=== PATIENT | female | born 1950 | race Caucasian/White ===

== ENCOUNTER → 2018-04-03 | Outpatient (CLI) | payer MEDICARE, OTHER ==
--- NOTE | 2018-04-05 11:38 | MM ---
Reason for exam: screening (asymptomatic). Last mammogram was performed 11 years and 1 month ago. History: Patient is postmenopausal and is nulliparous. Benign excisional biopsy of the right breast, 1970. Took estrogen for 4 years. Physical Findings: A clinical breast exam by your physician is recommended on an annual basis and results should be correlated with mammographic findings. MG 3D Screening Mammo W/Cad Bilateral CC and MLO view(s) were taken. Technologist: RT Danelle (R)(M) Prior study comparison: March 03, 2007, bilateral screening mammogram w/CAD. February 21, 2006, bilateral screening mammogram w/CAD. There are scattered fibroglandular densities. Finding: There are intermediate concern, suspicious coarse heterogeneous, linear, grouped/clustered calcifications in the 6 o'clock middle position of the right breast. ASSESSMENT: Incomplete: need additional imaging evaluation, BI-RAD 0 RECOMMENDATION: Special view mammogram of the right breast. [facility] will attempt to contact patient to return for supplemental views.
== END | disposition home or self-care (01) ==
LOC: RADMAMWWP 14:39
PROVIDERS: ATTEND General Practice
DX: Z12.31 Encounter for screening mammogram for malignant neoplasm of breast (principal); I10 Essential (primary) hypertension; E11.9 Type 2 diabetes mellitus without complications; E78.5 Hyperlipidemia, unspecified; R26.81 Unsteadiness on feet; Z13.89 Encounter for screening for other disorder; Z12.11 Encounter for screening for malignant neoplasm of colon; Z23 Encounter for immunization
CPT/HCPCS: 77063; 77067

== ENCOUNTER → 2018-04-17 | Outpatient (CLI) | payer MEDICARE, OTHER ==
--- NOTE | 2018-04-18 11:01 | MM ---
Reason for exam: additional evaluation requested from abnormal screening. Last mammogram was performed less than 1 month ago. History: Patient is postmenopausal and is nulliparous. Benign excisional biopsy of the right breast, 1970. Took estrogen for 4 years. MG 3D Work Up W/Cad RT CC and MLO view(s) were taken of the right breast. Prior study comparison: April 03, 2018, bilateral MG 3d screening mammo w/cad. March 03, 2007, bilateral screening mammogram w/CAD. ASSESSMENT: Probably benign, BI-RAD 3 RECOMMENDATION: Follow-up diagnostic mammogram of the right breast in 6 months.
--- NOTE | 2018-04-18 11:07 | USB ---
Reason for exam: additional evaluation requested from prior study. History: Patient is postmenopausal and is nulliparous. Family history of breast cancer in maternal cousin at age 50. Benign excisional biopsy of the right breast, 1970. Took estrogen for 4 years. US Breast Workup Limited RT Right limited breast ultrasound including focal area of concern, retroareolar and axilla demonstrates no solid or systic lesion seen. These results were verbally communicated with the patient and result sheet given to the patient on 04/17/18. ASSESSMENT: Probably benign, BI-RAD 3 RECOMMENDATION: Follow-up diagnostic mammogram of the right breast in 6 months. Manage on a clinical basis.
== END | disposition home or self-care (01) ==
LOC: RADMAMWWP 15:38
PROVIDERS: ATTEND General Practice
DX: R92.8 Other abnormal and inconclusive findings on diagnostic imaging of breast (principal)
CPT/HCPCS: 77065; 76642; G0279; 77061

== ENCOUNTER 2018-06-19 10:34 | Emergency (ER) | payer MEDICARE, OTHER ==
[2018-06-19] MEDS ORDERED: SODIUM CHLORIDE 0.9% 500 ML 500 ML IV ONE (11:40)
[2018-06-19] MEDS ORDERED: KETOROLAC 60 MG/2 ML VIAL IVP STA (11:40)
[2018-06-19] MEDS ORDERED: DIAZEPAM 5 MG/ML 2 ML INJ IVP STA (11:40)
--- NOTE | 2018-06-19 11:48 | ED ---
General Adult HPI - General Chief complaint: Neck Pain/Injury Stated complaint: Neck Pain Time Seen by Provider: 06/19/18 10:45 Source: EMS, RN notes reviewed Mode of arrival: EMS Limitations: no limitations - History of Present Illness Initial comments: This is a 68-year-old female who presents emergency Department with a past medical history significant for stroke and chronic tremors. Patient states she woke up after sleeping on the sofa but all night with some neck pain bilaterally. Patient states she also just didn't feel right but she is unable to give any further description. Sister who lives with her states that the patient seemed to be a little more slow in her responses than normal so she was worried the patient had a stroke again because she's not formally with the signs and symptoms of stroke. Patient states she she had no weakness of any extremity no numbness of any extremity she states she has a very mild headache she denies any blurred vision she denies any worsening in her speech. But she does state that she just doesn't feel right. Patient denies any chest pain palpitations difficulty breathing or shortness of breath. Patient denies any abdominal pain patient denies any nausea vomiting or diarrhea. Patient denies any recent fever chills. Patient states her neck is stiff especially the left side but both sides are stiff when she tries to move it. - Related Data Previous Rx's Medication Instructions Recorded Ibuprofen [Motrin] 600 mg PO Q6HR PRN #20 tab 06/19/18 Orphenadrine [Norflex] 100 mg PO Q12H #20 tablet.er 06/19/18 Allergies Allergy/AdvReac Type Severity Reaction Status Date / Time No Known Allergies Allergy Verified 06/19/18 10:45 Review of Systems ROS Statement: Those systems with pertinent positive or pertinent negative responses have been documented in the HPI. ROS Other: All systems not noted in ROS Statement are negative. Past Medical History Past Medical History: CVA/TIA, Diabetes Mellitus, Hyperlipidemia, Hypertension History of Any Multi-Drug Resistant Organisms: None Reported Past Surgical History: Appendectomy Additional Past Surgical History / Comment(s): L breast Past Psychological History: No Psychological Hx Reported Smoking Status: Never smoker Past Alcohol Use History: None Reported Past Drug Use History: None Reported General Exam - General Exam Comments Initial Comments: GENERAL: Patient is well-developed and well-nourished. Patient is nontoxic and well- hydrated and is in mild distress. ENT: Neck is soft and supple. No significant lymphadenopathy is noted. Oropharynx is clear. Moist mucous membranes. Moving the neck to the right left or flexes it does cause her some pain in the trapezius muscles bilaterally EYES: The sclera were anicteric and conjunctiva were pink and moist. Extraocular movements were intact and pupils were equal round and reactive to light. Eyelids were unremarkable. PULMONARY: Unlabored respirations. Good breath sounds bilaterally. No audible rales rhonchi or wheezing was noted. CARDIOVASCULAR: There is a regular rate and rhythm without any murmurs gallops or rubs. ABDOMEN: Soft and nontender with normal bowel sounds. SKIN: Skin is clear with no lesions or rashes and otherwise unremarkable. NEUROLOGIC: Patient is alert and oriented x3. Cranial nerves II through XII are grossly intact. Motor and sensory are also intact. Patient's speech is slow and quiet but the sister and the patient agree that this is normal for her. MUSCULOSKELETAL: Normal extremities with adequate strength and full range of motion. No lower extremity swelling or edema. No calf tenderness. LYMPHATICS: No significant lymphadenopathy is noted PSYCHIATRIC: Normal psychiatric evaluation. Normal interpersonal interactions appears functionally intact in deals appropriately with others. No signs of depression. No signs of anxiety. Limitations: no limitations Course Vital Signs 06/19/18 06/19/18 06/19/18 10:45 11:00 12:50 Temperature 98.4 F Pulse Rate 73 79 Respiratory 16 18 Rate Blood Pressure 150/90 146/88 O2 Sat by Pulse 95 97 Oximetry Medical Decision Making - Medical Decision Making EKG shows normal sinus rhythm at 60 bpm AK interval is on a 52 QRS is 86 QT interval 420 QTC is 446. Patient's EKG shows no ST segment elevation or depression or T wave abnormalities are noted. Patient received Valium and Toradol. Patient was reevaluated by myself in her range of motion of her neck was considerably improved. Family member noted a great improvement as well. Patient stated overall she felt completely better and back to her baseline except for a little residual Stiffness. Patient no longer felt any confusion - Lab Data Result diagrams: 06/19/18 12:07 06/19/18 12:07 Lab Results 06/19/18 06/19/18 06/19/18 Range/Units 12:07 12:07 12:07 WBC 5.1 (3.8-10.6) k/uL RBC 3.89 (3.80-5.40) m/uL Hgb 12.2 (11.4-16.0) gm/dL Hct 36.2 (34.0-46.0) % MCV 93.3 (80.0-100.0) fL MCH 31.5 (25.0-35.0) pg MCHC 33.8 (31.0-37.0) g/dL RDW 13.5 (11.5-15.5) % Plt Count 183 (150-450) k/uL Neutrophils % 63 % Lymphocytes % 26 % Monocytes % 5 % Eosinophils % 4 % Basophils % 1 % Neutrophils # 3.2 (1.3-7.7) k/uL Lymphocytes # 1.3 (1.0-4.8) k/uL Monocytes # 0.3 (0-1.0) k/uL Eosinophils # 0.2 (0-0.7) k/uL Basophils # 0.0 (0-0.2) k/uL PT (9.0-12.0) sec INR (<1.2) APTT (22.0-30.0) sec Sodium 140 (137-145) mmol/L Potassium 4.8 (3.5-5.1) mmol/L Chloride 106 (98-107) mmol/L Carbon Dioxide 24 (22-30) mmol/L Anion Gap 10 mmol/L BUN 21 H (7-17) mg/dL Creatinine 0.48 L (0.52-1.04) mg/dL Est GFR (CKD-EPI)AfAm >90 (>60 ml/min/1.73 sqM) Est GFR (CKD-EPI)NonAf >90 (>60 ml/min/1.73 sqM) Glucose 138 H (74-99) mg/dL Calcium 9.4 (8.4-10.2) mg/dL Total Bilirubin 0.9 (0.2-1.3) mg/dL AST 63 H (14-36) U/L ALT 74 H (9-52) U/L Alkaline Phosphatase 50 (38-126) U/L Total Creatine Kinase 29 L (30-135) U/L CK-MB (CK-2) <0.2 (0.0-2.4) ng/mL CK-MB (CK-2) Rel Index Troponin I <0.012 (0.000-0.034) ng/mL Total Protein 7.5 (6.3-8.2) g/dL Albumin 4.2 (3.5-5.0) g/dL Urine Color Urine Appearance (Clear) Urine pH (5.0-8.0) Ur Specific [place] (1.001-1.035) Urine Protein (Negative) Urine Glucose (UA) (Negative) Urine Ketones (Negative) Urine Blood (Negative) Urine Nitrite (Negative) Urine Bilirubin (Negative) Urine Urobilinogen (<2.0) mg/dL Ur Leukocyte Esterase (Negative) Urine Opiates Screen (NotDetected) Ur Oxycodone Screen (NotDetected) Urine Methadone Screen (NotDetected) Ur Propoxyphene Screen (NotDetected) Ur Barbiturates Screen (NotDetected) U Tricyclic Antidepress (NotDetected) Ur Phencyclidine Scrn (NotDetected) Ur Amphetamines Screen (NotDetected) U Methamphetamines Scrn (NotDetected) U Benzodiazepines Scrn (NotDetected) Urine Cocaine Screen (NotDetected) U Marijuana (THC) Screen (NotDetected) 06/19/18 06/19/18 Range/Units 12:07 12:55 WBC (3.8-10.6) k/uL RBC (3.80-5.40) m/uL Hgb (11.4-16.0) gm/dL Hct (34.0-46.0) % MCV (80.0-100.0) fL MCH (25.0-35.0) pg MCHC (31.0-37.0) g/dL RDW (11.5-15.5) % Plt Count (150-450) k/uL Neutrophils % % Lymphocytes % % Monocytes % % Eosinophils % % Basophils % % Neutrophils # (1.3-7.7) k/uL Lymphocytes # (1.0-4.8) k/uL Monocytes # (0-1.0) k/uL Eosinophils # (0-0.7) k/uL Basophils # (0-0.2) k/uL PT 10.1 (9.0-12.0) sec INR 1.0 (<1.2) APTT 22.7 (22.0-30.0) sec Sodium (137-145) mmol/L Potassium (3.5-5.1) mmol/L Chloride (98-107) mmol/L Carbon Dioxide (22-30) mmol/L Anion Gap mmol/L BUN (7-17) mg/dL Creatinine (0.52-1.04) mg/dL Est GFR (CKD-EPI)AfAm (>60 ml/min/1.73 sqM) Est GFR (CKD-EPI)NonAf (>60 ml/min/1.73 sqM) Glucose (74-99) mg/dL Calcium (8.4-10.2) mg/dL Total Bilirubin (0.2-1.3) mg/dL AST (14-36) U/L ALT (9-52) U/L Alkaline Phosphatase (38-126) U/L Total Creatine Kinase (30-135) U/L CK-MB (CK-2) (0.0-2.4) ng/mL CK-MB (CK-2) Rel Index Troponin I (0.000-0.034) ng/mL Total Protein (6.3-8.2) g/dL Albumin (3.5-5.0) g/dL Urine Color Yellow Urine Appearance Clear (Clear) Urine pH 5.5 (5.0-8.0) Ur Specific [place] 1.021 (1.001-1.035) Urine Protein Trace H (Negative) Urine Glucose (UA) Negative (Negative) Urine Ketones Negative (Negative) Urine Blood Negative (Negative) Urine Nitrite Negative (Negative) Urine Bilirubin Negative (Negative) Urine Urobilinogen <2.0 (<2.0) mg/dL Ur Leukocyte Esterase Negative (Negative) Urine Opiates Screen Not Detected (NotDetected) Ur Oxycodone Screen Not Detected (NotDetected) Urine Methadone Screen Not Detected (NotDetected) Ur Propoxyphene Screen Not Detected (NotDetected) Ur Barbiturates Screen Not Detected (NotDetected) U Tricyclic Antidepress Not Detected (NotDetected) Ur Phencyclidine Scrn Not Detected (NotDetected) Ur Amphetamines Screen Not Detected (NotDetected) U Methamphetamines Scrn Not Detected (NotDetected) U Benzodiazepines Scrn Not Detected (NotDetected) Urine Cocaine Screen Not Detected (NotDetected) U Marijuana (THC) Screen Not Detected (NotDetected) Disposition Clinical Impression: Strain of neck muscle Instructions: Cervical Strain (ED) Prescriptions: Ibuprofen [Motrin] 600 mg PO Q6HR PRN #20 tab PRN Reason: For pain Orphenadrine [Norflex] 100 mg PO Q12H #20 tablet.er Is patient prescribed a controlled substance at d/c from ED?: No Referrals: Ryder Guadalupe MD [Primary Care Provider] - 1-2 days Time of Disposition: 13:34
[2018-06-19 12:30] LABS: Basophils % (A) 1 %; Eosinophils # (A) 0.2 k/uL (0-0.7); Eosinophils % (A) 4 %; HCT 36.2 % (34.0-46.0); HGB 12.2 gm/dL (11.4-16.0); Lymphocytes # (A) 1.3 k/uL (1.0-4.8); Lymphocytes % (A) 26 %; MCH 31.5 pg (25.0-35.0); MCHC 33.8 g/dL (31.0-37.0); MCV 93.3 fL (80.0-100.0); Mean Platelet Volume 9.4; Monocytes # (A) 0.3 k/uL (0-1.0); Monocytes % (A) 5 %; Neutrophils # (A) 3.2 k/uL (1.3-7.7); Neutrophils % (A) 63 %; Platelet Count 183 k/uL (150-450); RBC 3.89 m/uL (3.80-5.40); RDW 13.5 % (11.5-15.5); WBC 5.1 k/uL (3.8-10.6)
--- NOTE | 2018-06-19 12:41 | XR ---
EXAMINATION TYPE: XR chest 2V DATE OF EXAM: 06/19/2018 COMPARISON: NONE HISTORY: Neck and chest pain and sore throat. TECHNIQUE: Frontal and lateral views of the chest are obtained. FINDINGS: There is no focal air space opacity, pleural effusion, or pneumothorax seen. The cardiac silhouette size is within normal limits. The osseous structures are intact. IMPRESSION: No acute cardiopulmonary process.
[2018-06-19 12:44] LABS: ALT 74 U/L (9-52); AST 63 U/L (14-36); Albumin 4.2 g/dL (3.5-5.0); Alkaline Phosphatase 50 U/L (38-126); Anion Gap 10 mmol/L; Blood Urea Nitrogen 21 mg/dL (7-17); Calcium 9.4 mg/dL (8.4-10.2); Carbon Dioxide 24 mmol/L (22-30); Chloride 106 mmol/L (98-107); Glucose 138 mg/dL (74-99); Sodium 140 mmol/L (137-145); Total Bilirubin 0.9 mg/dL (0.2-1.3); Total Protein 7.5 g/dL (6.3-8.2)
[2018-06-19 12:50] VITALS: RESP 18
[2018-06-19 12:52] LABS: Potassium 4.8 mmol/L (3.5-5.1)
[2018-06-19 12:56] LABS: Creatine Kinase 29 U/L (30-135)
[2018-06-19 13:07] LABS: Appearance,Urine Clear (Clear); Bilirubin,Urine Negative (Negative); Blood,Urine Negative (Negative); Color,Urine Yellow; Glucose,Urine (UA) Negative (Negative); Ketones,Urine Negative (Negative); Leukocyte Esterase,Urine Negative (Negative); Nitrite,Urine Negative (Negative); PH, Urine 5.5 (5.0-8.0); Protein,Urine Trace (Negative); Specific Gravity,Urine 1.021 (1.001-1.035); Urobilinogen,Urine <2.0 mg/dL (<2.0)
[2018-06-19 13:09] LABS: Creatine Kinase MB <0.2 ng/mL (0.0-2.4); Troponin I <0.012 ng/mL (0.000-0.034)
[2018-06-19 13:10] LABS: Partial Thromboplastin Time 22.7 sec (22.0-30.0); Prothrombin Time 10.1 sec (9.0-12.0)
[2018-06-19 13:20] LABS: Amphetamine Screen,Urine Not Detected (NotDetected); Barbiturate Screen,Urine Not Detected (NotDetected); Benzodiazepines Screen,Urine Not Detected (NotDetected); Cocaine Screen,Urine Not Detected (NotDetected); Methadone Screen, Urine Not Detected (NotDetected); Opiate Screen,Urine Not Detected (NotDetected); Oxycodone Screen, Urine Not Detected (NotDetected); Phencyclidine Screen,Urine Not Detected (NotDetected); Tricyclic Antidepressant,Urine Not Detected (NotDetected); Urn Cannabinoid Scrn Not Detected (NotDetected)
[2018-06-19 13:57] VITALS: BP 145/96; PULSE 75; TEMP 97.9
== END 2018-06-19 13:56 ==
LOC: EC 10:34
DX: Z86.73 Personal history of transient ischemic attack (TIA), and cerebral infarction without residual deficits (principal); S16.1XXA Strain of muscle, fascia and tendon at neck level, initial encounter; R51 Headache; X58.XXXA Exposure to other specified factors, initial encounter
CPT/HCPCS: 36415; 93005; 80053; 82550; 82553; 84484; 85025; 85610; 85730; 81003; 80306; 71046; 99284; 96374; 96375; J3360; J1885

== ENCOUNTER 2018-07-18 09:27 | Emergency (ER) | payer MEDICARE, OTHER ==
[2018-07-18] MEDS ORDERED: DIAZEPAM 5 MG TAB PO STA (10:31)
[2018-07-18] MEDS ORDERED: KETOROLAC 30 MG/ML 1 ML VIAL IM STA (10:31)
[2018-07-18 11:45] LABS: Basophils % (A) 1 %; Eosinophils # (A) 0.2 k/uL (0-0.7); Eosinophils % (A) 5 %; HGB 12.5 gm/dL (11.4-16.0); Lymphocytes # (A) 1.3 k/uL (1.0-4.8); Lymphocytes % (A) 30 %; MCH 30.5 pg (25.0-35.0); MCHC 32.8 g/dL (31.0-37.0); MCV 93.2 fL (80.0-100.0); Mean Platelet Volume 8.7; Monocytes # (A) 0.2 k/uL (0-1.0); Monocytes % (A) 5 %; Neutrophils # (A) 2.5 k/uL (1.3-7.7); Neutrophils % (A) 57 %; Platelet Count 169 k/uL (150-450); RBC 4.08 m/uL (3.80-5.40); RDW 13.2 % (11.5-15.5); WBC 4.3 k/uL (3.8-10.6)
[2018-07-18 11:51] LABS: ALT 52 U/L (9-52); AST 47 U/L (14-36); Albumin 4.1 g/dL (3.5-5.0); Alkaline Phosphatase 59 U/L (38-126); Anion Gap 10 mmol/L; Blood Urea Nitrogen 15 mg/dL (7-17); Calcium 9.4 mg/dL (8.4-10.2); Carbon Dioxide 24 mmol/L (22-30); Chloride 108 mmol/L (98-107); Glucose 95 mg/dL (74-99); Potassium 4.2 mmol/L (3.5-5.1); Sodium 142 mmol/L (137-145); Total Bilirubin 0.9 mg/dL (0.2-1.3); Total Protein 7.2 g/dL (6.3-8.2)
[2018-07-18 12:02] LABS: Creatine Kinase 37 U/L (30-135)
[2018-07-18 12:15] LABS: Creatine Kinase MB 0.3 ng/mL (0.0-2.4); Troponin I <0.012 ng/mL (0.000-0.034)
[2018-07-18] MEDS ORDERED: KETOROLAC 30 MG/ML 1 ML VIAL IVP STA (12:18)
--- NOTE | 2018-07-18 13:49 | ED ---
Back Pain HPI - General Chief Complaint: Back Pain/Injury Stated Complaint: Back pain Time Seen by Provider: 07/18/18 10:02 Source: patient Limitations: no limitations - History of Present Illness Initial Comments: 68-year-old female past medical history of previous stroke with right-sided residual deficits and chronic tremors presenting for neck tension. Patient states that she woke this morning with bilateral neck pain. She states that she felt off at this but had difficulty describing symptoms. Pt denies headache , vision loss, dizziness, upper or lower extremity paresthesias, muscle weakness , ataxia, speech changes, dysarthria. She states she lives with her sister, who was concerned that patient was experiencing stroke, however she states her sister does not know the signs and symptoms of s stroke. EMS was called-pt ambulatory. Patient states it felt more like a muscle spasm she experienced about a month ago she states that she was given 2 medications which took the pain away immediately at the hospital. Patient denies any recent fever, chills, shortness of breath, chest pain, back pain, abdominal pain, nausea or vomiting, numbness or tingling, dysuria or hematuria, constipation or diarrhea, headaches or visual changes, or any other complaints. Upon arrival patient appears well, alert and oriented 4. Ambulate without difficulty no signs of ataxia. - Related Data Home Medications Medication Instructions Recorded Confirmed Aspirin [Bracken Aspirin EC] 81 mg PO DAILY 07/18/18 07/18/18 Atorvastatin [Lipitor] 20 mg PO HS 07/18/18 07/18/18 Ergocalciferol [Vitamin D2 50,000 units PO Q7D 07/18/18 07/18/18 (DRISDOL)] Escitalopram [Lexapro] 10 mg PO DAILY 07/18/18 07/18/18 Levothyroxine Sodium 25 mcg PO DAILY 07/18/18 07/18/18 Lisinopril [Prinivil] 10 mg PO DAILY 07/18/18 07/18/18 amLODIPine [Norvasc] 10 mg PO DAILY 07/18/18 07/18/18 metFORMIN HCL 1,000 mg PO BID 07/18/18 07/18/18 Allergies Allergy/AdvReac Type Severity Reaction Status Date / Time No Known Allergies Allergy Verified 07/18/18 10:31 Review of Systems ROS Statement: Those systems with pertinent positive or pertinent negative responses have been documented in the HPI. ROS Other: All systems not noted in ROS Statement are negative. Constitutional: Denies: fever, chills, weight change, night sweats ENT: Denies: ear pain, throat pain, dental pain Respiratory: Denies: cough, dyspnea, wheezes, hemoptysis, stridor Cardiovascular: Denies: chest pain, palpitations, dyspnea on exertion Endocrine: Denies: fatigue Gastrointestinal: Denies: abdominal pain, nausea, vomiting, diarrhea, constipation Genitourinary: Denies: urgency, dysuria, frequency Musculoskeletal: Reports: as per HPI (neck tension). Denies: back pain, arthralgia Skin: Denies: rash, lesions Neurological: Denies: headache, weakness, numbness, paresthesias, confusion, abnormal gait Past Medical History Past Medical History: CVA/TIA, Diabetes Mellitus, Hyperlipidemia, Hypertension History of Any Multi-Drug Resistant Organisms: None Reported Past Surgical History: Appendectomy Additional Past Surgical History / Comment(s): L breast Past Psychological History: No Psychological Hx Reported Smoking Status: Never smoker Past Alcohol Use History: None Reported Past Drug Use History: None Reported General Exam - General Exam Comments Initial Comments: General: The patient is awake and alert, in no distress, and does not appear acutely ill. Eye: +3 mm pupils are equal, round and reactive to light, extra-ocular movements are intact. No photophobia. No nystagmus. There is normal conjunctiva bilaterally. No signs of icterus. Ears, nose, mouth and throat: There are moist mucous membranes and no oral lesions. Neck: The neck is supple, there is no tenderness or JVD. Cardiovascular: There is a regular rate and rhythm. No murmur, rub or gallop is appreciated. Respiratory: Lungs are clear to auscultation, respirations are non-labored, breath sounds are equal. No wheezes, stridor, rales, or rhonchi. Gastrointestinal: Soft, non-distended, non-tender abdomen without masses or organomegaly noted. There is no rebound or guarding present. No CVA tenderness. Bowel sounds are unremarkable. Musculoskeletal: Pt is able to flex, extend and laterally flex and rotate at the cervical spine no midline tenderness to palpation-. Normal ROM, no tenderness. Strength 4/5 right UE & LE. 5/5 strength of the left UE & LE. Sensation intact of the UE and LE equally b/l. Radial pulses equal bilaterally 2 +. Neurological: A&O x 3. CN II-XII intact, There are no obvious motor or sensory deficits. Coordination appears grossly intact. Speech is normal. No pronator drift, no signs of ataxia. Negative Kernig and Babinski sign. No nuchal rigidity. Skin: Skin is warm and dry and no rashes or lesions are noted. Psychiatric: Cooperative, appropriate mood & affect, normal judgment. Limitations: no limitations Course Vital Signs 07/18/18 07/18/18 07/18/18 09:32 12:21 15:34 Temperature 97.7 F 97.1 F L Pulse Rate 64 73 80 Respiratory 18 28 H 18 Rate Blood Pressure 147/84 152/78 147/88 O2 Sat by Pulse 97 97 95 Oximetry - Reevaluation(s) Reevaluation #1: Upon reevaluation following administration of Toradol and Valium patient states that her symptoms are however sent relieved, she is feeling much better. Patient states she is able to range more easily at the neck. She states she is ready for discharge. 07/18/18 Medical Decision Making - Medical Decision Making EKG shows no changes in comparison from June 2018. Patient received significant relief from Valium and Toradol, stating symptoms are 100% relieved. No focal neurological deficits on exam. Patient had much with her overall movement of the neck upon repeat physical examination. Patient sister in room stated that patient neck movement appeared greatly improved. At this time I feel pt symptoms due to neck muscle spasm, patient agrees . I feel patient is stable for discharge wtih primary f/u. Laboratory findings as noted above. VS within acceptable limits. Pt states she has current rx for mm relaxant and ibuprofen at home, pt was instructed to take muscle relaxant before bedtime as well as ibuprofen 800 every 8 hours as needed for pain. After discussing the case with Dr. Alvarado in detail he agrees with impression and plan. Patient was discharged in stable condition. Sister and patient both agreeable with discharge, denied further concerns or questions at this time. Return parameters discussed at length. - Lab Data Result diagrams: 07/18/18 11:17 07/18/18 11:17 Lab Results 07/18/18 07/18/18 07/18/18 Range/Units 11:17 11: 11:17 WBC 4.3 (3.8-10.6) k/uL RBC 4.08 (3.80-5.40) m/uL Hgb 12.5 (11.4-16.0) gm/dL Hct 38.0 (34.0-46.0) % MCV 93.2 (80.0-100.0) fL MCH 30.5 (25.0-35.0) pg MCHC 32.8 (31.0-37.0) g/dL RDW 13.2 (11.5-15.5) % Plt Count 169 (150-450) k/uL Neutrophils % 57 % Lymphocytes % 30 % Monocytes % 5 % Eosinophils % 5 % Basophils % 1 % Neutrophils # 2.5 (1.3-7.7) k/uL Lymphocytes # 1.3 (1.0-4.8) k/uL Monocytes # 0.2 (0-1.0) k/uL Eosinophils # 0.2 (0-0.7) k/uL Basophils # 0.0 (0-0.2) k/uL Sodium 142 (137-145) mmol/L Potassium 4.2 (3.5-5.1) mmol/L Chloride 108 H (98-107) mmol/L Carbon Dioxide 24 (22-30) mmol/L Anion Gap 10 mmol/L BUN 15 (7-17) mg/dL Creatinine 0.53 (0.52-1.04) mg/dL Est GFR (CKD-EPI)AfAm >90 (>60 ml/min/1.73 sqM) Est GFR (CKD-EPI)NonAf >90 (>60 ml/min/1.73 sqM) Glucose 95 (74-99) mg/dL Calcium 9.4 (8.4-10.2) mg/dL Total Bilirubin 0.9 (0.2-1.3) mg/dL AST 47 H (14-36) U/L ALT 52 (9-52) U/L Alkaline Phosphatase 59 (38-126) U/L Total Creatine Kinase 37 (30-135) U/L CK-MB (CK-2) 0.3 (0.0-2.4) ng/mL CK-MB (CK-2) Rel Index 0.8 Troponin I <0.012 (0.000-0.034) ng/mL Total Protein 7.2 (6.3-8.2) g/dL Albumin 4.1 (3.5-5.0) g/dL Urine Color Urine Appearance (Clear) Urine pH (5.0-8.0) Ur Specific [place] (1.001-1.035) Urine Protein (Negative) Urine Glucose (UA) (Negative) Urine Ketones (Negative) Urine Blood (Negative) Urine Nitrite (Negative) Urine Bilirubin (Negative) Urine Urobilinogen (<2.0) mg/dL Ur Leukocyte Esterase (Negative) 07/18/18 Range/Units 13:58 WBC (3.8-10.6) k/uL RBC (3.80-5.40) m/uL Hgb (11.4-16.0) gm/dL Hct (34.0-46.0) % MCV (80.0-100.0) fL MCH (25.0-35.0) pg MCHC (31.0-37.0) g/dL RDW (11.5-15.5) % Plt Count (150-450) k/uL Neutrophils % % Lymphocytes % % Monocytes % % Eosinophils % % Basophils % % Neutrophils # (1.3-7.7) k/uL Lymphocytes # (1.0-4.8) k/uL Monocytes # (0-1.0) k/uL Eosinophils # (0-0.7) k/uL Basophils # (0-0.2) k/uL Sodium (137-145) mmol/L Potassium (3.5-5.1) mmol/L Chloride (98-107) mmol/L Carbon Dioxide (22-30) mmol/L Anion Gap mmol/L BUN (7-17) mg/dL Creatinine (0.52-1.04) mg/dL Est GFR (CKD-EPI)AfAm (>60 ml/min/1.73 sqM) Est GFR (CKD-EPI)NonAf (>60 ml/min/1.73 sqM) Glucose (74-99) mg/dL Calcium (8.4-10.2) mg/dL Total Bilirubin (0.2-1.3) mg/dL AST (14-36) U/L ALT (9-52) U/L Alkaline Phosphatase (38-126) U/L Total Creatine Kinase (30-135) U/L CK-MB (CK-2) (0.0-2.4) ng/mL CK-MB (CK-2) Rel Index Troponin I (0.000-0.034) ng/mL Total Protein (6.3-8.2) g/dL Albumin (3.5-5.0) g/dL Urine Color Light Yellow Urine Appearance Clear (Clear) Urine pH 6.0 (5.0-8.0) Ur Specific [place] 1.011 (1.001-1.035) Urine Protein Negative (Negative) Urine Glucose (UA) Negative (Negative) Urine Ketones Trace H (Negative) Urine Blood Negative (Negative) Urine Nitrite Negative (Negative) Urine Bilirubin Negative (Negative) Urine Urobilinogen <2.0 (<2.0) mg/dL Ur Leukocyte Esterase Negative (Negative) Disposition Clinical Impression: Muscle spasms of neck Disposition: HOME SELF-CARE Condition: Good Instructions: Muscle Spasm (ED) Additional Instructions: Please use previuosly prescribed medication as discussed. Please follow-up with family doctor in the next 2 days. Please return to emergency room if the symptoms increase or worsen or for any other concerns. Is patient prescribed a controlled substance at d/c from ED?: No Referrals: Jaime Malin MD [Primary Care Provider] - 1-2 days Time of Disposition: 13:49
[2018-07-18 14:24] LABS: Appearance,Urine Clear (Clear); Bilirubin,Urine Negative (Negative); Blood,Urine Negative (Negative); Color,Urine Light Yellow; Glucose,Urine (UA) Negative (Negative); Ketones,Urine Trace (Negative); Leukocyte Esterase,Urine Negative (Negative); Nitrite,Urine Negative (Negative); Protein,Urine Negative (Negative); Specific Gravity,Urine 1.011 (1.001-1.035); Urobilinogen,Urine <2.0 mg/dL (<2.0)
[2018-07-18 15:35] VITALS: BP 147/88; PULSE 80; RESP 18; TEMP 97.1
== END 2018-07-18 15:35 | disposition home or self-care (01) ==
LOC: EC 09:27
DX: M62.830 Muscle spasm of back (principal); E78.5 Hyperlipidemia, unspecified; I10 Essential (primary) hypertension; E11.9 Type 2 diabetes mellitus without complications; Z79.82 Long term (current) use of aspirin; Z79.84 Long term (current) use of oral hypoglycemic drugs; Z79.899 Other long term (current) drug therapy; Z53.8 Procedure and treatment not carried out for other reasons
CPT/HCPCS: 36415; 93005; 80053; 82550; 82553; 84484; 85025; 81003; 99284; 96374; J1885

== ENCOUNTER → 2018-12-29 | Outpatient (CLI) | payer MEDICARE, OTHER ==
--- NOTE | 2018-12-29 11:03 | MR ---
MR brain with contrast HISTORY: Benign essential tremor, confusion Multiplanar multisequence imaging through the brain No comparisons There is no restricted diffusion to suggest subacute ischemia. There are normal vascular flow voids. No hemorrhage or hydrocephalus. Cortical atrophy is likely age-related. Scattered and confluent hyper intensities are present on inversion recovery T2-weighted sequences within the mela, periventricular and subcortical white matter. Some small areas of encephalomalacia also noted towards the convexity p eriventricular regions. The corpus callosum, pituitary, cervical medullary junction, cerebellopontine angles are unremarkable. Orbits are symmetric and unremarkable. Mild inflammatory change present wit hin the maxillary sinus, ethmoid air cells. IMPRESSION: Chronic small vessel ischemia, age related atrophy.
== END | disposition home or self-care (01) ==
LOC: RADMRIMAIN 09:39
PROVIDERS: ATTEND Psychiatry & Neurology Neurology
DX: I67.82 Cerebral ischemia (principal); G31.1 Senile degeneration of brain, not elsewhere classified
CPT/HCPCS: 70551

== ENCOUNTER → 2019-01-16 | Outpatient (CLI) | payer MEDICARE, OTHER | END | disposition home or self-care (01) | LOC: LABWHC1 14:21 | PROVIDERS: ATTEND Psychiatry & Neurology Neurology | DX: G25.0 Essential tremor (principal); G31.84 Mild cognitive impairment of uncertain or unknown etiology | CPT/HCPCS: 36415; 82607; 84439; 84443 ==

== ENCOUNTER → 2019-04-23 | Outpatient (CLI) | payer MEDICARE, OTHER ==
--- NOTE | 2019-04-24 13:33 | MM ---
Reason for exam: screening (asymptomatic). Last mammogram was performed 1 year ago. History: Patient is postmenopausal and is nulliparous. Family history of breast cancer in maternal cousin at age 50. Benign excisional biopsy of the right breast, 1970. Took estrogen for 4 years. Physical Findings: A clinical breast exam by your physician is recommended on an annual basis and results should be correlated with mammographic findings. MG 3D Screening Mammo W/Cad Bilateral CC and MLO view(s) were taken. Prior study comparison: April 17, 2018, right breast MG 3d work up w/cad RT. April 03, 2018, bilateral MG 3d screening mammo w/cad. There are scattered fibroglandular densities. Grouped round calcifications central right breast minimally increase but typically benign. 6 month follow up recommended. Lateral left breast mole. ASSESSMENT: Probably benign, BI-RAD 3 RECOMMENDATION: Follow-up diagnostic mammogram of the right breast in 6 months.
== END | disposition home or self-care (01) ==
LOC: RADMAMWWP 10:19
PROVIDERS: ATTEND General Practice
DX: Z12.31 Encounter for screening mammogram for malignant neoplasm of breast (principal); Z00.01 Encounter for general adult medical examination with abnormal findings; E11.9 Type 2 diabetes mellitus without complications; I10 Essential (primary) hypertension; E03.9 Hypothyroidism, unspecified; M25.532 Pain in left wrist
CPT/HCPCS: 77063; 77067

== ENCOUNTER → 2019-10-17 | Outpatient (CLI) | payer MEDICARE, OTHER ==
[2019-10-17 15:14] LABS: HCT 29.2 % (34.0-46.0); HGB 9.4 gm/dL (11.4-16.0); MCHC 32.2 g/dL (31.0-37.0); MCV 99.6 fL (80.0-100.0); Mean Platelet Volume 9.8; Platelet Count 187 k/uL (150-450); RBC 2.93 m/uL (3.80-5.40); RDW 13.8 % (11.5-15.5); WBC 4.1 k/uL (3.8-10.6)
[2019-10-17 18:56] LABS: % Iron Saturation 27.67 (12.00-45.00); African American GFR (CKD) 44.6 (60.0-200.0); Albumin 4.4 g/dL (3.80-4.90); Albumin/Globulin Ratio 2.1 (1.60-3.17); Anion Gap 13.2 mmol/L (4.00-12.00); BUN/Creat Ratio 18.57 Ratio (12.00-20.00); Calcium 9.7 mg/dL (8.7-10.3); Carbon Dioxide 25.8 mmol/L (21.6-31.8); Ferritin 345.1 ng/mL (10.0-291.0); Globulin 2.1 g/dL (1.6-3.3); Non-African American GFR(CKD) 38.5 (60.0-200.0); Potassium 4.7 mmol/L (3.5-5.5); Total Bilirubin 0.6 mg/dL (0.2-1.2); Total Protein 6.5 g/dL (6.2-8.2)
== END | disposition home or self-care (01) ==
LOC: LABWHC1 13:34
PROVIDERS: ATTEND Nurse Practitioner Family
DX: N18.3 Chronic kidney disease, stage 3 (moderate) (principal); D63.1 Anemia in chronic kidney disease; N39.0 Urinary tract infection, site not specified; R80.9 Proteinuria, unspecified; E55.9 Vitamin D deficiency, unspecified
CPT/HCPCS: 36415; 80053; 82306; 82728; 83540; 83550; 85027

== ENCOUNTER 2021-06-02 11:04 | Emergency (ER) | payer MEDICARE, OTHER ==
[2021-06-02 11:22] VITALS: TEMP 98
[2021-06-02] MEDS ORDERED: SODIUM CHLORIDE 0.9% 500 ML 500 ML IV STA (11:24)
--- NOTE | 2021-06-02 11:37 | ED ---
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 Patient lives in adult foster facility. Patient's sister is here and helping with some history. She denies any pain anywhere other than some mild low back pain which is normal for her. She denies any falls or trauma. She denies being lightheaded, she does admit to some mild room spinning. She denies having a headache, no blurry vision. She denies any chest pain or shortness of breath, no abdominal pain, no nausea or vomiting, no dysuria. She normally walks with a walker secondary to her stroke. She does have some mild weakness on the right side which is normal for her. She also has history of essential tremor which is also normal. She denies any recent medication changes. She denies any recent fevers or chills, no cough or cold-like symptoms. She has no further complaints at this time. Upon arrival to the ER, her vitals are stable. EMS did check glucose and it was normal at 130. - Related Data Home Medications Medication Instructions Recorded Confirmed Aspirin [[place] Aspirin EC] 81 mg PO DAILY 07/18/18 06/02/21 Atorvastatin [Lipitor] 20 mg PO HS 07/18/18 06/02/21 Escitalopram [Lexapro] 10 mg PO DAILY 07/18/18 06/02/21 Levothyroxine Sodium 25 mcg PO DAILY 07/18/18 06/02/21 Acetaminophen Tab [Tylenol Tab] 500 mg PO Q6H PRN 06/02/21 06/02/21 Ascorbic Acid [Vitamin C] 500 mg PO DAILY 06/02/21 06/02/21 Cholecalciferol [Vitamin D3 (25 25 mcg PO DAILY 06/02/21 06/02/21 Mcg = 1000 Iu)] Cranberry Fruit Extract [Cranberry] 500 mg PO BID 06/02/21 06/02/21 Cyanocobalamin (Vitamin B-12) 1,000 mcg PO DAILY 06/02/21 06/02/21 [Vitamin B-12] Docusate [Colace] 100 mg PO DAILY 06/02/21 06/02/21 Famotidine [Pepcid] 20 mg PO DAILY 06/02/21 06/02/21 Ferrous Sulfate [Feosol] 325 mg PO DAILY 06/02/21 06/02/21 Magnesium Oxide [Mag-Ox] 400 mg PO DAILY 06/02/21 06/02/21 amLODIPine [Norvasc] 5 mg PO DAILY 06/02/21 06/02/21 Allergies Allergy/AdvReac Type Severity Reaction Status Date / Time No Known Allergies Allergy Verified 06/02/21 14:00 Review of Systems ROS Statement: Those systems with pertinent positive or pertinent negative responses have been documented in the HPI. ROS Other: All systems not noted in ROS Statement are negative. Past Medical History Past Medical History: CVA/TIA, Diabetes Mellitus, Hyperlipidemia, Hypertension History of Any Multi-Drug Resistant Organisms: None Reported Past Surgical History: Appendectomy Additional Past Surgical History / Comment(s): L breast Past Psychological History: No Psychological Hx Reported Past Alcohol Use History: None Reported Past Drug Use History: None Reported General Exam - General Exam Comments Initial Comments: GENERAL: Patient is well-developed and well-nourished. Patient is nontoxic and in no acute distress, patient does seem fatigue and closes her eyes often. HEAD: Atraumatic, normocephalic. EYES: Pupils equal round and reactive to light, extraocular movements intact, sclera anicteric, conjunctiva are normal. Eyelids were unremarkable. ENT: TMs normal, nares patent, oropharynx clear without exudates. Moist mucous membranes. NECK: Normal range of motion, supple without lymphadenopathy or JVD. LUNGS: Unlabored respirations. Breath sounds clear to auscultation bilaterally and equal. No wheezes rales or rhonchi. HEART: Regular rate and rhythm without murmurs, rubs or gallops. ABDOMEN: Soft, she has some mild tenderness of the left side, no other areas of tenderness, normoactive bowel sounds. No guarding, no rebound. No masses appreciated. : Deferred MUSCULOSKELETAL: Mild weakness on the right side extremities secondary to stroke deficit, this is normal for her. Normal extremities with adequate strength and normal range of motion, no pitting or edema. No clubbing or cyanosis. NEUROLOGICAL: Patient is alert and oriented x 3. Motor and sensory are also intact. Cranial nerves II through XII grossly intact. Symmetrical smile. Normal speech. Patient has history of essential tremor which is also normal for her. PSYCH: Normal mood, normal affect. SKIN: Warm, Dry, normal turgor, no rashes or lesions noted. Course Vital Signs 06/02/21 11:14 Temperature 98 F Pulse Rate 68 Respiratory 20 Rate Blood Pressure 145/82 O2 Sat by Pulse 97 Oximetry EKG Findings - EKG Comments: EKG Findings:: Normal sinus rhythm, incomplete RBBB, minimal voltage criteria for LVH, no signs of acute ST segment elevation. Ventricular rate 63, ID interval 160, QT 442. Medical Decision Making - Medical Decision Making Patient is a 71-year-old female with history of stroke, with some mild right sided residual weakness, history of hypertension, essential tremor, presenting via EMS with some lightheadedness, feeling off. He denies any pain anywhere, on abdominal exam she did have some mild left-sided discomfort. No nausea or vomiting, no chest pain or shortness of breath. Her vital signs are stable upon arrival, no fevers. EKG is reading normal sinus rhythm, no acute process. Brain CT shows no acute process, chest x-ray shows no evidence for acute pulmonary disease. Labs are showing a normal white count of 3.9, hemoglobin is stable at 10.0, creatinine is slightly up at 1.45 with BUN at 39. Troponin is normal, lipase is 482. TSH is normal at 2.1. Urine shows no evidence of infection. Patient's vital signs remained stable here in the ER, she has remained asymptomatic, no lightheadedness. She is eating and drinking without difficulty. I discussed with the patient and her sister that her workup is showing just some mild dehydration but otherwise no acute findings. We did give her some fluids. She is stable for discharge. She can follow-up with her primary care. They are agreeable to this. Return parameters were discussed with her and she verbalized understanding. Case discussed with Dr. Justin. - Lab Data Result diagrams: 06/02/21 12:05 06/02/21 12:05 Lab Results 06/02/21 06/02/2106/02/21 Range/Units 12:05 12:05 12:05 WBC 3.9 (3.8-10.6) k/uL RBC 3.07 L (3.80-5.40) m/uL Hgb 10.0 L (11.4-16.0) gm/dL Hct 29.9 L (34.0-46.0) % MCV 97.5 (80.0-100.0) fL MCH 32.7 (25.0-35.0) pg MCHC 33.5 (31.0-37.0) g/dL RDW 13.5 (11.5-15.5) % Plt Count 159 (150-450) k/uL MPV 9.1 Neutrophils % 61 % Lymphocytes % 29 % Monocytes % 5 % Eosinophils % 3 % Basophils % 0 % Neutrophils # 2.4 (1.3-7.7) k/uL Lymphocytes # 1.1 (1.0-4.8) k/uL Monocytes # 0.2 (0-1.0) k/uL Eosinophils # 0.1 (0-0.7) k/uL Basophils # 0.0 (0-0.2) k/uL PT 10.1 (9.0-12.0) sec INR 0.9 (<1.2) APTT 19.9 L (22.0-30.0) sec Sodium (137-145) mmol/L Potassium (3.5-5.1) mmol/L Chloride (98-107) mmol/L Carbon Dioxide (22-30) mmol/L Anion Gap mmol/L BUN (7-17) mg/dL Creatinine (0.52-1.04) mg/dL Est GFR (CKD-EPI)AfAm (>60 ml/min/1.73 sqM) Est GFR (CKD-EPI)NonAf (>60 ml/min/1.73 sqM) Glucose (74-99) mg/dL Plasma Lactic Acid Ryan (0.7-2.0) mmol/L Calcium (8.4-10.2) mg/dL Magnesium (1.6-2.3) mg/dL Total Bilirubin (0.2-1.3) mg/dL AST (14-36) U/L ALT (4-34) U/L Alkaline Phosphatase (38-126) U/L Creatine Kinase (30-135) U/L Troponin I (0.000-0.034) ng/mL Total Protein (6.3-8.2) g/dL Albumin (3.5-5.0) g/dL Lipase (23-300) U/L TSH (0.465-4.680) mIU/L Urine Color Light Yellow Urine Appearance Cloudy H (Clear) Urine pH 7.5 (5.0-8.0) Ur Specific [place] 1.009 (1.001-1.035) Urine Protein Negative (Negative) Urine Glucose (UA) Negative (Negative) Urine Ketones Negative (Negative) Urine Blood Negative (Negative) Urine Nitrite Negative (Negative) Urine Bilirubin Negative (Negative) Urine Urobilinogen <2.0 (<2.0) mg/dL Ur Leukocyte Esterase Negative (Negative) Urine RBC <1 (0-5) /hpf Urine WBC 1 (0-5) /hpf Ur Squamous Epith Cells 3 (0-4) /hpf Amorphous Sediment Rare H (None) /hpf Urine Bacteria Occasional H (None) /hpf Urine Mucus Rare H (None) /hpf Salicylates mg/dL Urine Opiates Screen (NotDetected) Ur Oxycodone Screen (NotDetected) Urine Methadone Screen (NotDetected) Ur Propoxyphene Screen (NotDetected) Acetaminophen ug/mL Ur Barbiturates Screen (NotDetected) U Tricyclic Antidepress (NotDetected) Ur Phencyclidine Scrn (NotDetected) Ur Amphetamines Screen (NotDetected) U Methamphetamines Scrn (NotDetected) U Benzodiazepines Scrn (NotDetected) Urine Cocaine Screen (NotDetected) U Marijuana (THC) Screen (NotDetected) 06/02/21 06/02/21 06/02/21 Range/Units 12:05 12:05 12:05 WBC (3.8-10.6) k/uL RBC (3.80-5.40) m/uL Hgb (11.4-16.0) gm/dL Hct (34.0-46.0) % MCV (80.0-100.0) fL MCH (25.0-35.0) pg MCHC (31.0-37.0) g/dL RDW (11.5-15.5) % Plt Count (150-450) k/uL MPV Neutrophils % % Lymphocytes % % Monocytes % % Eosinophils % % Basophils % % Neutrophils # (1.3-7.7) k/uL Lymphocytes # (1.0-4.8) k/uL Monocytes # (0-1.0) k/uL Eosinophils # (0-0.7) k/uL Basophils # (0-0.2) k/uL PT (9.0-12.0) sec INR (<1.2) APTT (22.0-30.0) sec Sodium 144 (137-145) mmol/L Potassium 3.9 (3.5-5.1) mmol/L Chloride 113 H (98-107) mmol/L Carbon Dioxide 22 (22-30) mmol/L Anion Gap 9 mmol/L BUN 39 H (7-17) mg/dL Creatinine 1.45 H (0.52-1.04) mg/dL Est GFR (CKD-EPI)AfAm 42 (>60 ml/min/1.73 sqM) Est GFR (CKD-EPI)NonAf 37 (>60 ml/min/1.73 sqM) Glucose 108 H (74-99) mg/dL Plasma Lactic Acid Ryan 1.5 (0.7-2.0) mmol/L Calcium 8.8 (8.4-10.2) mg/dL Magnesium 2.4 H (1.6-2.3) mg/dL Total Bilirubin 0.4 (0.2-1.3) mg/dL AST 25 (14-36) U/L ALT 15 (4-34) U/L Alkaline Phosphatase 58 (38-126) U/L Creatine Kinase 92 (30-135) U/L Troponin I <0.012 (0.000-0.034) ng/mL Total Protein 6.9 (6.3-8.2) g/dL Albumin 3.8 (3.5-5.0) g/dL Lipase 482 H (23-300) U/L TSH 2.160 (0.465-4.680) mIU/L Urine Color Urine Appearance (Clear) Urine pH (5.0-8.0) Ur Specific [place] (1.001-1.035) Urine Protein (Negative) Urine Glucose (UA) (Negative) Urine Ketones (Negative) Urine Blood (Negative) Urine Nitrite (Negative) Urine Bilirubin (Negative) Urine Urobilinogen (<2.0) mg/dL Ur Leukocyte Esterase (Negative) Urine RBC (0-5) /hpf Urine WBC (0-5) /hpf Ur Squamous Epith Cells (0-4) /hpf Amorphous Sediment (None) /hpf Urine Bacteria (None) /hpf Urine Mucus (None) /hpf Salicylates <1.0 mg/dL Urine Opiates Screen (NotDetected) Ur Oxycodone Screen (NotDetected) Urine Methadone Screen (NotDetected) Ur Propoxyphene Screen (NotDetected) Acetaminophen <10.0 ug/mL Ur Barbiturates Screen (NotDetected) U Tricyclic Antidepress (NotDetected) Ur Phencyclidine Scrn (NotDetected) Ur Amphetamines Screen (NotDetected) U Methamphetamines Scrn (NotDetected) U Benzodiazepines Scrn (NotDetected) Urine Cocaine Screen (NotDetected) U Marijuana (THC) Screen (NotDetected) 06/02/21 Range/Units 12:05 WBC (3.8-10.6) k/uL RBC (3.80-5.40) m/uL Hgb (11.4-16.0) gm/dL Hct (34.0-46.0) % MCV (80.0-100.0) fL MCH (25.0-35.0) pg MCHC (31.0-37.0) g/dL RDW (11.5-15.5) % Plt Count (150-450) k/uL MPV Neutrophils % % Lymphocytes % % Monocytes % % Eosinophils % % Basophils % % Neutrophils # (1.3-7.7) k/uL Lymphocytes # (1.0-4.8) k/uL Monocytes # (0-1.0) k/uL Eosinophils # (0-0.7) k/uL Basophils # (0-0.2) k/uL PT (9.0-12.0) sec INR (<1.2) APTT (22.0-30.0) sec Sodium (137-145) mmol/L Potassium (3.5-5.1) mmol/L Chloride (98-107) mmol/L Carbon Dioxide (22-30) mmol/L Anion Gap mmol/L BUN (7-17) mg/dL Creatinine (0.52-1.04) mg/dL Est GFR (CKD-EPI)AfAm (>60 ml/min/1.73 sqM) Est GFR (CKD-EPI)NonAf (>60 ml/min/1.73 sqM) Glucose (74-99) mg/dL Plasma Lactic Acid Ryan (0.7-2.0) mmol/L Calcium (8.4-10.2) mg/dL Magnesium (1.6-2.3) mg/dL Total Bilirubin (0.2-1.3) mg/dL AST (14-36) U/L ALT (4-34) U/L Alkaline Phosphatase (38-126) U/L Creatine Kinase (30-135) U/L Troponin I (0.000-0.034) ng/mL Total Protein (6.3-8.2) g/dL Albumin (3.5-5.0) g/dL Lipase (23-300) U/L TSH (0.465-4.680) mIU/L Urine Color Urine Appearance (Clear) Urine pH (5.0-8.0) Ur Specific [place] (1.001-1.035) Urine Protein (Negative) Urine Glucose (UA) (Negative) Urine Ketones (Negative) Urine Blood (Negative) Urine Nitrite (Negative) Urine Bilirubin (Negative) Urine Urobilinogen (<2.0) mg/dL Ur Leukocyte Esterase (Negative) Urine RBC (0-5) /hpf Urine WBC (0-5) /hpf Ur Squamous Epith Cells (0-4) /hpf Amorphous Sediment (None) /hpf Urine Bacteria (None) /hpf Urine Mucus (None) /hpf Salicylates mg/dL Urine Opiates Screen Not Detected (NotDetected) Ur Oxycodone Screen Not Detected (NotDetected) Urine Methadone Screen Not Detected (NotDetected) Ur Propoxyphene Screen Not Detected (NotDetected) Acetaminophen ug/mL Ur Barbiturates Screen Not Detected (NotDetected) U Tricyclic Antidepress Not Detected (NotDetected) Ur Phencyclidine Scrn Not Detected (NotDetected) Ur Amphetamines Screen Not Detected (NotDetected) U Methamphetamines Scrn Not Detected (NotDetected) U Benzodiazepines Scrn Not Detected (NotDetected) Urine Cocaine Screen Not Detected (NotDetected) U Marijuana (THC) Screen Not Detected (NotDetected) Disposition Clinical Impression: Dehydration Disposition: HOME SELF-CARE Condition: Stable Instructions (If sedation given, give patient instructions): Dehydration (ED) Additional Instructions: Please return to the Emergency Department if symptoms worsen or any other concerns. Please increase your fluid intake. Please follow-up with your primary care within 1-3 days. Is patient prescribed a controlled substance at d/c from ED?: No Referrals: Jaime Malin MD [Primary Care Provider] - 1-2 days Time of Disposition: 14:48
[2021-06-02 12:17] LABS: Basophils % (A) 0 %; Eosinophils # (A) 0.1 k/uL (0-0.7); Eosinophils % (A) 3 %; HCT 29.9 % (34.0-46.0); Lymphocytes # (A) 1.1 k/uL (1.0-4.8); Lymphocytes % (A) 29 %; MCH 32.7 pg (25.0-35.0); MCHC 33.5 g/dL (31.0-37.0); MCV 97.5 fL (80.0-100.0); Mean Platelet Volume 9.1; Monocytes # (A) 0.2 k/uL (0-1.0); Monocytes % (A) 5 %; Neutrophils # (A) 2.4 k/uL (1.3-7.7); Neutrophils % (A) 61 %; Platelet Count 159 k/uL (150-450); RBC 3.07 m/uL (3.80-5.40); RDW 13.5 % (11.5-15.5); WBC 3.9 k/uL (3.8-10.6)
[2021-06-02 12:32] LABS: ALT 15 U/L (4-34); AST 25 U/L (14-36); Acetaminophen <10.0 ug/mL; African American GFR (CKD) 42 (>60 ml/min/1.73 sqM); Albumin 3.8 g/dL (3.5-5.0); Alkaline Phosphatase 58 U/L (38-126); Anion Gap 9 mmol/L; Blood Urea Nitrogen 39 mg/dL (7-17); Calcium 8.8 mg/dL (8.4-10.2); Carbon Dioxide 22 mmol/L (22-30); Chloride 113 mmol/L (98-107); Creatine Kinase 92 U/L (30-135); Glucose 108 mg/dL (74-99); Lipase 482 U/L (23-300); Magnesium 2.4 mg/dL (1.6-2.3); Non-African American GFR(CKD) 37 (>60 ml/min/1.73 sqM); Potassium 3.9 mmol/L (3.5-5.1); Salicylate <1.0 mg/dL; Sodium 144 mmol/L (137-145); Total Bilirubin 0.4 mg/dL (0.2-1.3); Total Protein 6.9 g/dL (6.3-8.2)
--- NOTE | 2021-06-02 12:33 | CT ---
EXAMINATION TYPE: CT brain wo con DATE OF EXAM: 06/02/2021 COMPARISON: None HISTORY: weakness CT DLP: 1041.[address] of the brain was performed. The ventricles, basal cisterns and sulci overlying the cerebral convexities demonstrate mild enlargem ent. There is no evidence for intracranial hemorrhage or sulcal effacement. There is decreased attenuation about the periventricular white matter and deep white matter of both c erebral hemispheres, compatible with chronic small vessel ischemia. Differential diagnosis does inclu de demyelination. No mass effects are seen.No midline shift. Osseous calvarium is intact. If symptoms persist consider MRI. IMPRESSION: 1. Age related atrophic and chronic small vessel ischemic change without acute intracranial process s een at this time.
--- NOTE | 2021-06-02 12:38 | XR ---
EXAMINATION TYPE: XR chest 2V DATE OF EXAM: 06/02/2021 COMPARISON: NONE HISTORY: Shortness of breath TECHNIQUE: Frontal and lateral views of the chest are obtained. FINDINGS: Scattered senescent parenchymal changes noted. Hyperinflation compatible with COPD. No evidence for infiltrate. No evidence for atelectasis. Heart size is stable. Mediastinal structures are stable and grossly unremarkable. No evidence for hilar prominence. Degenerative changes dorsal spine. IMPRESSION: 1. No evidence for acute pulmonary disease.
[2021-06-02 12:45] LABS: INR 0.9 (<1.2); Prothrombin Time 10.1 sec (9.0-12.0)
[2021-06-02 12:51] LABS: Partial Thromboplastin Time 19.9 sec (22.0-30.0)
[2021-06-02 14:36] LABS: Amphetamine Screen,Urine Not Detected (NotDetected); Barbiturate Screen,Urine Not Detected (NotDetected); Benzodiazepines Screen,Urine Not Detected (NotDetected); Cocaine Screen,Urine Not Detected (NotDetected); Methadone Screen, Urine Not Detected (NotDetected); Opiate Screen,Urine Not Detected (NotDetected); Oxycodone Screen, Urine Not Detected (NotDetected); Phencyclidine Screen,Urine Not Detected (NotDetected); Tricyclic Antidepressant,Urine Not Detected (NotDetected); Urn Cannabinoid Scrn Not Detected (NotDetected)
[2021-06-02 15:36] VITALS: BP 152/72; PULSE 74; RESP 18
[2021-06-02 16:02] LABS: Appearance,Urine Clear (Clear); Bacteria,Urine Rare /hpf; Bilirubin,Urine Negative (Negative); Blood,Urine Negative (Negative); Color,Urine Yellow; Glucose,Urine (UA) Negative (Negative); Ketones,Urine Negative (Negative); Leukocyte Esterase,Urine Small (Negative); Mucus,Urine Rare /hpf; Nitrite,Urine Negative (Negative); PH, Urine 5.5 (5.0-8.0); Protein,Urine Trace (Negative); RBC,Urine <1 /hpf (0-5); Specific Gravity,Urine 1.025 (1.001-1.035); Squamous Epithelial Cell,Urine 1 /hpf (0-4); Urobilinogen,Urine <2.0 mg/dL (<2.0); WBC,Urine 7 /hpf (0-5)
== END 2021-06-02 15:36 | disposition home or self-care (01) ==
LOC: EC 11:04
DX: E86.0 Dehydration (principal); E11.9 Type 2 diabetes mellitus without complications; E78.5 Hyperlipidemia, unspecified; I10 Essential (primary) hypertension; Z79.82 Long term (current) use of aspirin; Z86.73 Personal history of transient ischemic attack (TIA), and cerebral infarction without residual deficits; Z79.899 Other long term (current) drug therapy
CPT/HCPCS: 36415; 70450; 71046; 80053; 80143; 80179; 80306; 81001; 82550; 83605; 83690; 83735; 84443; 84484; 85025; 85610; 85730; 93005; 99285

== ENCOUNTER → 2021-07-16 | Outpatient (CLI) | payer MEDICARE, OTHER ==
--- NOTE | 2021-07-20 10:03 | MM ---
Reason for exam: screening (asymptomatic). Last mammogram was performed 2 years and 3 months ago. History: Patient is postmenopausal and is nulliparous. Family history of breast cancer in maternal cousin at age 50. Benign excisional biopsy of the right breast, 1970. Took estrogen for 4 years. Physical Findings: A clinical breast exam by your physician is recommended on an annual basis and results should be correlated with mammographic findings. MG 3D Screening Mammo W/Cad Bilateral CC and MLO view(s) were taken. Prior study comparison: April 23, 2019, bilateral MG 3d screening mammo w/cad. April 03, 2018, bilateral MG 3d screening mammo w/cad. There are scattered fibroglandular densities. Subtle grouped round calcifications on the right breast. No significant changes when compared with prior studies. ASSESSMENT: Benign, BI-RAD 2 RECOMMENDATION: Routine screening mammogram of both breasts in 1 year.
== END | disposition home or self-care (01) ==
LOC: RADMAMWWP 11:31
PROVIDERS: ATTEND Family Medicine
DX: Z12.31 Encounter for screening mammogram for malignant neoplasm of breast (principal)
CPT/HCPCS: 77063; 77067

== ENCOUNTER 2021-09-28 15:38 | Emergency (ER) | payer MEDICARE, OTHER ==
[2021-09-28 15:55] VITALS: BP 129/74; PULSE 74; RESP 16; TEMP 98.5
[2021-09-28] MEDS ORDERED: SODIUM CHLORIDE 0.9% 500 ML 500 ML IV ONE (16:45)
[2021-09-28 17:32] LABS: Appearance,Urine Cloudy (Clear); Bacteria,Urine Occasional /hpf; Bilirubin,Urine Negative (Negative); Blood,Urine Negative (Negative); Calcium 8.6 mg/dL (8.4-10.2); Color,Urine Light Yellow; Glucose,Urine (UA) Negative (Negative); Ketones,Urine Negative (Negative); Leukocyte Esterase,Urine Large (Negative); Nitrite,Urine Positive (Negative); PH, Urine 7.5 (5.0-8.0); Potassium 4.3 mmol/L (3.5-5.1); Protein,Urine Negative (Negative); RBC,Urine 6 /hpf (0-5); Specific Gravity,Urine 1.012 (1.001-1.035); Total Bilirubin 0.6 mg/dL (0.2-1.3); Total Protein 7.2 g/dL (6.3-8.2); Urobilinogen,Urine <2.0 mg/dL (<2.0); WBC,Urine >182 /hpf (0-5)
[2021-09-28 18:31] LABS: Basophils % (A) 1 %; Eosinophils # (A) 0.1 k/uL (0-0.7); Eosinophils % (A) 3 %; HGB 10.8 gm/dL (11.4-16.0); Lymphocytes # (A) 1.3 k/uL (1.0-4.8); Lymphocytes % (A) 29 %; MCH 32.7 pg (25.0-35.0); MCHC 33.7 g/dL (31.0-37.0); MCV 96.9 fL (80.0-100.0); Mean Platelet Volume 10.1; Monocytes # (A) 0.3 k/uL (0-1.0); Monocytes % (A) 7 %; Neutrophils # (A) 2.7 k/uL (1.3-7.7); Neutrophils % (A) 59 %; Platelet Count 135 k/uL (150-450); RDW 13.5 % (11.5-15.5); WBC 4.6 k/uL (3.8-10.6)
[2021-09-28] MEDS ORDERED: cefTRIAXone IN SWFI 1,000 MG/10 ML SYRINGE IVP STA (18:32)
--- NOTE | 2021-09-28 20:23 | ED ---
General Adult HPI - General Chief complaint: Neck Pain/Injury Stated complaint: arm & neck pain Time Seen by Provider: 09/28/21 16:26 Source: EMS Mode of arrival: EMS Limitations: no limitations - History of Present Illness Initial comments: 71-year-old female patient presented to the emergency department today for evaluation of body aches. States she is having pain in her arms, neck, back, legs. States the pain is chronic but is seems to be a little worse today. She denies any falls or injury. States she is having some lower abdominal discomfort. Does report frequency of urination. Denies any fever or chills. Denies nausea or vomiting. Denies any cough, congestion, or sore throat. Patient denies any recent rash, shortness of breath, diarrhea, constipation, numbness, tingling, dizziness, weakness, visual changes, or any other complain ts. - Related Data Home Medications Medication Instructions Recorded Confirmed Aspirin [[place] Aspirin EC] 81 mg PO DAILY 07/18/18 09/28/21 Atorvastatin [Lipitor] 20 mg PO HS 07/18/18 09/28/21 Escitalopram [Lexapro] 10 mg PO DAILY 07/18/18 09/28/21 Levothyroxine Sodium 25 mcg PO DAILY 07/18/18 09/28/21 Acetaminophen Tab [Tylenol Tab] 500 - 1,000 mg PO Q12H PRN 06/02/21 09/28/21 Ascorbic Acid [Vitamin C] 500 mg PO DAILY 06/02/21 09/28/21 Cholecalciferol [Vitamin D3 (25 25 mcg PO DAILY 06/02/21 09/28/21 Mcg = 1000 Iu)] Cranberry Fruit Extract [Cranberry] 500 mg PO BID 06/02/21 09/28/21 Docusate [Colace] 100 mg PO DAILY 06/02/21 09/28/21 Famotidine [Pepcid] 20 mg PO DAILY 06/02/21 09/28/21 Ferrous Sulfate [Feosol] 325 mg PO DAILY 06/02/21 09/28/21 Magnesium Oxide [Mag-Ox] 400 mg PO DAILY 06/02/21 09/28/21 amLODIPine [Norvasc] 5 mg PO BID 06/02/21 09/28/21 Carbamide Peroxide [Debrox Otic] 5 drops RIGHT EAR DAILY PRN 09/28/21 09/28/21 Cyanocobalamin (Vitamin B-12) 2,500 mcg PO DAILY 09/28/21 09/28/21 [Vitamin B-12] Previous Rx's Medication Instructions Recorded Cephalexin [Keflex] 500 mg PO Q6H #28 cap 09/28/21 Allergies Allergy/AdvReac Type Severity Reaction Status Date / Time No Known Allergies Allergy Verified 09/28/21 17:52 Review of Systems ROS Statement: Those systems with pertinent positive or pertinent negative responses have been documented in the HPI. ROS Other: All systems not noted in ROS Statement are negative. Past Medical History Past Medical History: CVA/TIA, Diabetes Mellitus, Hyperlipidemia, Hypertension History of Any Multi-Drug Resistant Organisms: None Reported Past Surgical History: Appendectomy Additional Past Surgical History / Comment(s): L breast Past Psychological History: No Psychological Hx Reported Past Alcohol Use History: None Reported Past Drug Use History: None Reported General Exam Limitations: no limitations General appearance: alert, in no apparent distress, other (This is a well- developed, well-nourished adult female in no acute distress.) Eye exam: Present: normal appearance, PERRL, EOMI. Absent: scleral icterus, conjunctival injection, nystagmus, periorbital swelling ENT exam: Present: normal exam, normal oropharynx, mucous membranes moist Respiratory exam: Present: normal lung sounds bilaterally. Absent: respiratory distress, wheezes, rales, rhonchi, stridor Cardiovascular Exam: Present: regular rate, normal rhythm, normal heart sounds. Absent: systolic murmur, diastolic murmur, rubs, gallop, clicks GI/Abdominal exam: Present: soft, normal bowel sounds. Absent: distended, tenderness, guarding, rebound, rigid Neurological exam: Present: alert, oriented X3, CN II-XII intact, normal gait, other (Strength in all 4 extremities is 5/5.) Psychiatric exam: Present: normal affect, normal mood Skin exam: Present: warm, dry, intact, normal color. Absent: rash Course Vital Signs 09/28/21 15:46 Temperature 98.5 F Pulse Rate 74 Respiratory 16 Rate Blood Pressure 129/74 O2 Sat by Pulse 98 Oximetry EKG Findings - EKG Comments: EKG Findings:: EKG obtained at 1848 shows normal sinus rhythm with a ventricular rate of 69, DE interval 174, QRS duration 100, QTC 446, QTc 477. No evidence of ST elevation or depression. Medical Decision Making - Medical Decision Making 71-year-old female patient percents for evaluation of body aches urinary frequency. Physical examination reveals mild suprapubic tenderness. She is neurologically intact motor focal deficits. Labs reviewed and revealed normal white blood cell count. She had elevated BUN and creatinine which is chronic for her. Urinalysis did show evidence for urinary tract infection. This was sent for culture. She started on antibiotics. She'll be discharged fall with her primary care physician for recheck in 1-2 days. Return parameters were discussed in detail. She verbalizes understanding and agrees with this plan. My attending is Dr. Justin. - Lab Data Result diagrams: 09/28/21 17:06 09/28/21 17:06 Lab Results 09/28/21 09/28/21 09/28/21 Range/Units 17:06 17:06 17:06 WBC 4.6 (3.8-10.6) k/uL RBC 3.30 L (3.80-5.40) m/uL Hgb 10.8 L (11.4-16.0) gm/dL Hct 32.0 L (34.0-46.0) % MCV 96.9 (80.0-100.0) fL MCH 32.7 (25.0-35.0) pg MCHC 33.7 (31.0-37.0) g/dL RDW 13.5 (11.5-15.5) % Plt Count 135 L (150-450) k/uL MPV 10.1 Neutrophils % 59 % Lymphocytes % 29 % Monocytes % 7 % Eosinophils % 3 % Basophils % 1 % Neutrophils # 2.7 (1.3-7.7) k/uL Lymphocytes # 1.3 (1.0-4.8) k/uL Monocytes # 0.3 (0-1.0) k/uL Eosinophils # 0.1 (0-0.7) k/uL Basophils # 0.0 (0-0.2) k/uL Sodium 140 (137-145) mmol/L Potassium 4.3 (3.5-5.1) mmol/L Chloride 109 H (98-107) mmol/L Carbon Dioxide 21 L (22-30) mmol/L Anion Gap 10 mmol/L BUN 32 H (7-17) mg/dL Creatinine 1.27 H (0.52-1.04) mg/dL Est GFR (CKD-EPI)AfAm 50 (>60 ml/min/1.73 sqM) Est GFR (CKD-EPI)NonAf 43 (>60 ml/min/1.73 sqM) Glucose 108 H (74-99) mg/dL Plasma Lactic Acid Ryan (0.7-2.0) mmol/L Calcium 8.6 (8.4-10.2) mg/dL Total Bilirubin 0.6 (0.2-1.3) mg/dL AST 21 (14-36) U/L ALT 11 (4-34) U/L Alkaline Phosphatase 60 (38-126) U/L Creatine Kinase 59 (30-135) U/L Troponin I (0.000-0.034) ng/mL Total Protein 7.2 (6.3-8.2) g/dL Albumin 4.0 (3.5-5.0) g/dL Urine Color Light Yellow Urine Appearance Cloudy H (Clear) Urine pH 7.5 (5.0-8.0) Ur Specific [place] 1.012 (1.001-1.035) Urine Protein Negative (Negative) Urine Glucose (UA) Negative (Negative) Urine Ketones Negative (Negative) Urine Blood Negative (Negative) Urine Nitrite Positive H (Negative) Urine Bilirubin Negative (Negative) Urine Urobilinogen <2.0 (<2.0) mg/dL Ur Leukocyte Esterase Large H (Negative) Urine RBC 6 H (0-5) /hpf Urine WBC >182 H (0-5) /hpf Urine WBC Clumps Many H (None) /hpf Urine Bacteria Occasional H (None) /hpf Coronavirus (PCR) (Not Detectd) 09/28/21 09/28/21 09/28/21 Range/Units 17:06 17:06 17:06 WBC (3.8-10.6) k/uL RBC (3.80-5.40) m/uL Hgb (11.4-16.0) gm/dL Hct (34.0-46.0) % MCV (80.0-100.0) fL MCH (25.0-35.0) pg MCHC (31.0-37.0) g/dL RDW (11.5-15.5) % Plt Count (150-450) k/uL MPV Neutrophils % % Lymphocytes % % Monocytes % % Eosinophils % % Basophils % % Neutrophils # (1.3-7.7) k/uL Lymphocytes # (1.0-4.8) k/uL Monocytes # (0-1.0) k/uL Eosinophils # (0-0.7) k/uL Basophils # (0-0.2) k/uL Sodium (137-145) mmol/L Potassium (3.5-5.1) mmol/L Chloride (98-107) mmol/L Carbon Dioxide (22-30) mmol/L Anion Gap mmol/L BUN (7-17) mg/dL Creatinine (0.52-1.04) mg/dL Est GFR (CKD-EPI)AfAm (>60 ml/min/1.73 sqM) Est GFR (CKD-EPI)NonAf (>60 ml/min/1.73 sqM) Glucose (74-99) mg/dL Plasma Lactic Acid Ryan 0.7 (0.7-2.0) mmol/L Calcium (8.4-10.2) mg/dL Total Bilirubin (0.2-1.3) mg/dL AST (14-36) U/L ALT (4-34) U/L Alkaline Phosphatase (38-126) U/L Creatine Kinase (30-135) U/L Troponin I <0.012 (0.000-0.034) ng/mL Total Protein (6.3-8.2) g/dL Albumin (3.5-5.0) g/dL Urine Color Urine Appearance (Clear) Urine pH (5.0-8.0) Ur Specific [place] (1.001-1.035) Urine Protein (Negative) Urine Glucose (UA) (Negative) Urine Ketones (Negative) Urine Blood (Negative) Urine Nitrite (Negative) Urine Bilirubin (Negative) Urine Urobilinogen (<2.0) mg/dL Ur Leukocyte Esterase (Negative) Urine RBC (0-5) /hpf Urine WBC (0-5) /hpf Urine WBC Clumps (None) /hpf Urine Bacteria (None) /hpf Coronavirus (PCR) Not Detected (Not Detectd) Disposition Clinical Impression: Body aches, UTI (urinary tract infection) Disposition: HOME SELF-CARE Condition: Good Instructions (If sedation given, give patient instructions): Urinary Tract Infection in Women (ED) Additional Instructions: Increase fluids. Complete antibiotic prescription in full. Follow-up with your primary care physician for recheck in 1-2 days. Return to the emergency department for any new, worsening, or concerning symptoms. Prescriptions: Cephalexin [Keflex] 500 mg PO Q6H #28 cap Is patient prescribed a controlled substance at d/c from ED?: No Referrals: Jaime Malin MD [Primary Care Provider] - 1-2 days Time of Disposition: 20:22
== END 2021-09-28 20:32 | disposition home or self-care (01) ==
LOC: EC 15:38
DX: N39.0 Urinary tract infection, site not specified (principal); I10 Essential (primary) hypertension; E11.9 Type 2 diabetes mellitus without complications; Z20.822 Contact with and (suspected) exposure to COVID-19
CPT/HCPCS: 36415; 93005; 80053; 82550; 83605; 84484; 85025; 81001; 87086; 87635; 99283; 96374; 96361; J0696

== ENCOUNTER → 2022-03-17 | Outpatient (CLI) | payer MEDICARE, OTHER ==
--- NOTE | 2022-03-17 12:17 | FL ---
Modified barium swallow. HISTORY: Dysphagia. Modified barium swallow was performed with the department of speech pathology. The patient was prese nted with various consistencies of barium. There is no evidence for aspiration or penetration. Full report is to follow from the department of speech pathology. Impression: Normal study.
== END | disposition home or self-care (01) ==
LOC: RADFLMAIN 11:17
PROVIDERS: ATTEND Physician Assistant Medical
DX: R13.10 Dysphagia, unspecified (principal); R51.9 Headache, unspecified
CPT/HCPCS: 74230

== ENCOUNTER → 2022-12-21 | Outpatient (CLI) | payer MEDICARE, OTHER ==
--- NOTE | 2022-12-23 06:21 | MR ---
EXAMINATION TYPE: MR shoulder LT wo con DATE OF EXAM: 12/21/2022 COMPARISON: None. HISTORY: Left shoulder pain with difficulty raising arm overhead for 4 weeks. Rotator cuff tear. TECHNIQUE: Multiplanar, multisequence imaging of the left shoulder is performed without contrast. FINDINGS: Suboptimal study due to patient's inability to hold still Rotator Cuff: Significant tear of the supraspinatus tendon with majority of fibers retracted to the l evel of the acromion. Full-thickness cleft noted coronal images 17 and 18. Infraspinatus tendon is in tact. Rotator cuff muscle bulk preserved. Acromioclavicular Joint: Type II downsloping acromion coronal image 16. Moderate narrowing at the acr omioclavicular joint. Glenohumeral Joint: Moderate to large size joint effusion. Note significant spurring. Labrum: The labrum appears grossly intact given limitation of non-arthrogram study. Biceps Tendon: The long head of biceps is in normal location within bicipital groove. Bone marrow signal: A few tiny subchondral cysts in the superior lateral humeral head. Other: No additional significant abnormality is appreciated. IMPRESSION: 1. Significant full-thickness tear of the supraspinatus tendon as detailed above. Moderate to large s ized glenohumeral joint effusion.
== END | disposition home or self-care (01) ==
LOC: RADMRIMAIN 13:32
PROVIDERS: ATTEND General Practice
DX: M19.112 Post-traumatic osteoarthritis, left shoulder (principal); M19.012 Primary osteoarthritis, left shoulder; M75.112 Incomplete rotator cuff tear or rupture of left shoulder, not specified as traumatic; M25.412 Effusion, left shoulder

== ENCOUNTER → 2023-10-18 | Outpatient (CLI) | payer MEDICARE, OTHER ==
--- NOTE | 2023-10-19 21:49 | MM ---
Reason for Exam: Screening (asymptomatic). Last mammogram was performed 2 year(s) and 3 month(s) ago. Patient History: Menarche at age 13. Patient has no children. Postmenopausal. Patient used Estrogen for 4 years. 1970, Benign Excisional Biopsy on the right side. Maternal cousin had breast cancer, age 50. Risk Values: Diane 5 year model risk: 2.3%. NCI Lifetime model risk: 6.0%. Prior Study Comparison: 04/17/2018 Right Diagnostic Mammogram, [facility]. 04/23/2019 Bilateral Screening Mammogram, [facility]. 07/16/2021 Bilateral Screening Mammogram, [facility]. Tissue Density: There are scattered fibroglandular densities. Findings: Analyzed By CAD. Superior asymmetric density on the left remains unchanged. There is no suspicious group of microcalcifications or new suspicious mass in either breast. Overall Assessment: Benign, BI-RAD 2 Management: Screening Mammogram of both breasts in 1 year. . Patient should continue monthly self-breast exams. A clinical breast exam by your physician is recommended on an annual basis. This exam should not preclude additional follow-up of suspicious palpable abnormalities. Note on Diane scores and lifetime risk: 1. A Diane score greater than 3% is considered moderate risk. If this is the case, consider specialist referral to assess eligibility for a risk reducing agent. 2. If overall lifetime risk for the development of breast cancer is 20% or higher, the patient may qualify for future screening with alternating mammogram and breast MRI. Electronically signed and approved by: Usman Stewart M.D. Radiologist
== END | disposition home or self-care (01) ==
LOC: RADMAMWWP 13:35
PROVIDERS: ATTEND General Practice
DX: Z12.31 Encounter for screening mammogram for malignant neoplasm of breast (principal); Z78.0 Asymptomatic menopausal state; Z80.3 Family history of malignant neoplasm of breast
CPT/HCPCS: 77063; 77067

== ENCOUNTER 2024-11-21 13:41 | Emergency (ER) | payer MEDICARE, OTHER ==
[2024-11-21 13:53] VITALS: RESP 16; TEMP 97.5
[2024-11-21] MEDS: KETOROLAC 15 MG/ML 1 ML VIAL IM STA (14:09)
--- NOTE | 2024-11-21 14:11 | ED ---
General Adult HPI - General Chief complaint: Extremity Problem,Nontraumatic Stated complaint: right arm pain Time Seen by Provider: 11/21/24 13:53 Source: patient, EMS, RN notes reviewed, old records reviewed Mode of arrival: EMS Limitations: no limitations - History of Present Illness Initial comments: 74-year-old female with right arm pain. Patient does have chronic pain issues. She states that she had previously had count of pain all over which is resolved and she was left with residual right arm pain. She does not remember a specific injury. She has no chest pain. No abdominal pain. No fever. No rash. Pain is between the shoulder and the elbow. She states there is no pain with movement of the shoulder and no pain with movement of the elbow but there is pain to touch the right upper extremity. - Related Data Home Medications Medication Instructions Recorded Confirmed Aspirin [[place] Aspirin EC] 81 mg PO DAILY 07/18/18 09/28/21 Atorvastatin [Lipitor] 20 mg PO HS 07/18/18 09/28/21 Escitalopram [Lexapro] 10 mg PO DAILY 07/18/18 09/28/21 Levothyroxine Sodium 25 mcg PO DAILY 07/18/18 09/28/21 Acetaminophen Tab [Tylenol Tab] 500 - 1,000 mg PO Q12H PRN 06/02/21 09/28/21 Ascorbic Acid [Vitamin C] 500 mg PO DAILY 06/02/21 09/28/21 Cholecalciferol [Vitamin D3 (25 25 mcg PO DAILY 06/02/21 09/28/21 Mcg = 1000 Iu)] Cranberry Fruit Extract [Cranberry] 500 mg PO BID 06/02/21 09/28/21 Docusate [Colace] 100 mg PO DAILY 06/02/21 09/28/21 Famotidine [Pepcid] 20 mg PO DAILY 06/02/21 09/28/21 Ferrous Sulfate [Feosol] 325 mg PO DAILY 06/02/21 09/28/21 Magnesium Oxide [Mag-Ox] 400 mg PO DAILY 06/02/21 09/28/21 amLODIPine [Norvasc] 5 mg PO BID 06/02/21 09/28/21 Carbamide Peroxide [Debrox Otic] 5 drops RIGHT EAR DAILY PRN 09/28/21 09/28/21 Cyanocobalamin (Vitamin B-12) 2,500 mcg PO DAILY 09/28/21 09/28/21 [Vitamin B-12] Previous Rx's Medication Instructions Recorded Cephalexin [Keflex] 500 mg PO Q6H #28 cap 09/28/21 Allergies Allergy/AdvReac Type Severity Reaction Status Date / Time No Known Allergies Allergy Verified 09/28/21 17:52 Review of Systems ROS Statement: Those systems with pertinent positive or pertinent negative responses have been documented in the HPI. ROS Other: All systems not noted in ROS Statement are negative. Past Medical History Past Medical History: CVA/TIA, Diabetes Mellitus, Hyperlipidemia, Hypertension History of Any Multi-Drug Resistant Organisms: None Reported Past Surgical History: Appendectomy Additional Past Surgical History / Comment(s): L breast Past Psychological History: No Psychological Hx Reported Past Alcohol Use History: None Reported Past Drug Use History: None Reported General Exam Limitations: no limitations General appearance: alert, in no apparent distress Head exam: Present: atraumatic, normocephalic Eye exam: Present: normal appearance, PERRL ENT exam: Present: normal exam Neck exam: Present: normal inspection. Absent: tenderness, meningismus Respiratory exam: Present: normal lung sounds bilaterally. Absent: respiratory distress, wheezes Cardiovascular Exam: Present: regular rate, normal rhythm GI/Abdominal exam: Present: soft. Absent: distended, tenderness Extremities exam: Present: normal inspection, full ROM, tenderness (Tenderness over the lateral aspect of the right upper extremity between the elbow and the shoulder. There is no swelling. No skin changes. No deformity. Distal pulses are intact. Normal range of motion at the elbow and the shoulder.) Neurological exam: Present: alert, oriented X3 Psychiatric exam: Present: normal affect, normal mood Skin exam: Present: warm, dry, intact. Absent: cyanosis, diaphoretic Course Vital Signs 11/21/24 13:50 Temperature 97.5 F L Pulse Rate 63 Respiratory 16 Rate Blood Pressure 141/71 O2 Sat by Pulse 96 Oximetry Medical Decision Making - Medical Decision Making Was pt. sent in by a medical professional or institution (, PA, [employer] WORKER, urgent care, hospital, or detention...) When possible be specific @ -No Did you speak to anyone other than the patient for history (EMS, parent, family, police, friend...)? What history was obtained from this source @ -No Did you review nursing and triage notes (agree or disagree)? Why? @ -I reviewed and agree with nursing and triage notes Were old charts reviewed (outside hosp., previous admission, EMS record, old EKG, old radiological studies, urgent care reports/EKG's, detention records)? Report findings @ -No old charts were reviewed Differential Musculoskeletal Muscular strain, contusion, ligament sprain, fracture, arthritis, septic arthritis, bursitis, cellulitis, muscle spasm, nerve compression, DVT, arterial occlusion, herpes zoster, electrolyte abnormality, tumor.... This is not meant to be in all inclusive list EKG interpreted by me (3pts min.). @ -As above X-rays interpreted by me (1pt min.). @ -X-ray of the humerus is negative for displaced fracture, no acute findings. CT interpreted by me (1pt min.). @ -None done U/S interpreted by me (1pt. min.). @ -None done What testing was considered but not performed or refused? (CT, X-rays, U/S, lab s)? Why? @ -None What meds were considered but not given or refused? Why? @ -None Did you discuss the management of the patient with other professionals (professionals i.e. , PA, [employer]SEM[employer] WORKER, lab, RT, psych nurse, protective services social worker, wrecking crane engine operator, teacher, veterans service officer, case preparer and liner)? Give summary @ -No Was smoking cessation discussed for >3mins.? @ -No Was critical care preformed (if so, how long)? @ -No Were there social determinants of health that impacted care today? How? (Homelessness, low income, unemployed, alcoholism, drug addiction, transportation, low edu. Level, literacy, decrease access to med. care, nursing home, rehab)? @ -No Was there de-escalation of care discussed even if they declined (Discuss DNR or withdrawal of care, Hospice)? DNR status @ -No What co-morbidities impacted this encounter? (DM, HTN, Smoking, COPD, CAD, Cancer, CVA, ARF, Chemo, Hep., AIDS, mental health diagnosis, sleep apnea, morbid obesity)? @ -None Was patient admitted / discharged? Hospital course, mention meds given and route, prescriptions, significant lab abnormalities, going to OR and other pertinent info. @ -74-year-old female presenting with right upper arm pain. No ecchymosis. No erythema. No rash. There is tenderness to palpation. Normal vital signs. No chest or abdominal pain. No abdominal tenderness on exam. Pain is worse with movement and worse with palpation. X-ray is negative. Patient feels better after Toradol. Stable for discharge. Return parameters discussed Undiagnosed new problem with uncertain prognosis? @ -No Drug Therapy requiring intensive monitoring for toxicity (Heparin, Nitro, Insulin, Cardizem)? @ -No Were any procedures done? @ -No Diagnosis/symptom? @ -Right arm pain Acute, or Chronic, or Acute on Chronic? @ -Acute Uncomplicated (without systemic symptoms) or Complicated (systemic symptoms)? @ -Default Side effects of treatment? @ -No Exacerbation, Progression, or Severe Exacerbation? @ -No Poses a threat to life or bodily function? How? (Chest pain, [place], [place], pneumonia, PE, COPD, DKA, ARF, appy, cholecystitis, CVA, Diverticulitis, Homicidal, Suicidal, threat to staff... and all critical care pts) @ -No Disposition Clinical Impression: Arm pain Disposition: HOME SELF-CARE Condition: Fair Instructions (If sedation given, give patient instructions): Arm Pain (ED) Additional Instructions: Please monitor symptoms and return with worsening or changing symptoms. Is patient prescribed a controlled substance at d/c from ED?: No Referrals: None,Stated [Primary Care Provider] - 1-2 days Time of Disposition: 14:30
--- NOTE | 2024-11-21 14:42 | XR ---
EXAMINATION TYPE: XR humerus RT DATE OF EXAM: 11/21/2024 2:18 PM COMPARISON: None CLINICAL INDICATION: Female, 74 years old with history of pain, pain TECHNIQUE: XR humerus RT examined in frontal and lateral projections. FINDINGS: No evidence of acute osseous pathology, joint dislocation, or soft tissue swelling. Degener ation changes of the glenohumeral and acromioclavicular joint calcification near the supraspinatus te ndon. The remaining portions of the visualized chest are unremarkable. IMPRESSION: 1. No acute osseous pathology. 2. Mild to moderate degeneration changes right shoulder. 3. Rotator cuff calcified tendinosis suggested. Consider MRI. [facility], , 11/21/2024 2:40 PM
[2024-11-21 15:24] VITALS: BP 143/74; PULSE 72
== END 2024-11-21 15:53 | disposition home or self-care (01) ==
LOC: EC 13:41
DX: M79.601 Pain in right arm (principal)
CPT/HCPCS: 73060; 99283; 96372; J1885